=== PATIENT | female | born 1950 | race African-American/Black ===

== ENCOUNTER 2018-01-31 06:18 | Observation (INO) | payer MEDICARE ==
[2018-01-30 10:55] LABS: BASOPHILS % 0.2 % (0.0-1.0); EOSINOPHILS # (AUTO) 0.2 (0.0-0.4); EOSINOPHILS % 2.9 % (0.0-6.0); HEMATOCRIT 37.8 % (34.2-44.1); LYMPHOCYTES # (AUTO) 1.7 (1.0-3.2); LYMPHOCYTES % 26.6 % (18.0-39.1); MEAN CORPUSCULAR HEMOGLOBIN 28.6 pg (28-32); MEAN CORPUSCULAR HGB CONC 31.7 g/dL (31-35); MONOCYTES # (AUTO) 0.5 (0.2-0.8); MONOCYTES % 7.4 % (4.4-11.3); NEUTROPHILS % 62.6 % (38.7-80.0); PLATELET COUNT 259 x10e3/uL (140-360); RED CELL DISTRIBUTION WIDTH 13.8 % (11.7-14.4)
[2018-01-30 11:09] LABS: ANION GAP 10.5 mmol/L (8-16); BLOOD UREA NITROGEN 16 mg/dL (7-26); BUN/CREATININE RATIO 18 (6-25); CALCIUM 9.8 mg/dL (8.4-10.2); CARBON DIOXIDE 32 mmol/L (22-29); CHLORIDE 100 mmol/L (98-107); EST GLOMERULAR FILTRATION RATE > 60 ML/MIN (60-); GLUCOSE 99 mg/dL (74-118); POTASSIUM 4.5 mmol/L (3.5-5.1); SODIUM 138 mmol/L (136-145)
--- NOTE | 2018-01-30 11:21 | Diagnostic Imaging Report ---
PROCEDURE: X-RAY CHEST, TWO VIEWS COMPARISON: None. INDICATIONS: PREOPERATIVE CHEST XRAY FOR KNEE SURGERY FINDINGS: LUNGS: Well-inflated. No mass, infiltrate, or interstitial thickening. Vascular markings are normal. PLEURA: No effusions or pneumothorax. HEART \T\ MEDIASTINUM: The heart mildly enlarged. The aorta is ectatic. No hilar lymphadenopathy. BONES \T\ SOFT TISSUES: No focal osseous lesions. CONCLUSION: Mild cardiomegaly without vascular congestion. Otherwise normal chest. Dictated by: Julian Gandhi M.D. on 01/30/2018 at 11:22 Electronically approved by: Julian Gandhi M.D. on 01/30/2018 at 11:22
[~2018-01-31] VITALS: Ht 157.5 cm; Wt 82.1 kg
[~2018-01-31 06:18] MED LIST: ASPIR 8181 MG PO; BYSTOLIC20 MG PO; CELECOXIB 200 MG CAP ONE; CLARITIN-D 241 EACH PO; COMBIVENT RESPIM4 GM IH; DEXAMETHASONE SOD PHOS 10 MG/1 ML VIAL ONE; GABAPENTIN 300 MG CAP ONE; IBUPROFEN400 MG PO; OMEGA XL PO; TRIAMTERENE-HCTZ1 EA PO; VANCOMYCIN 1GM/NS 250 ML 250 ML ONE
--- OUTSIDE RECORDS SUMMARY | 2018-01-31 06:20 | XMS REPORT ---
Author Author [facility] Address Unknown Phone Unavailable Care Team Providers Care Permanent Mold Supervisor Name Role Phone ELIAN DOMINGUEZ Unavailable Unavailable Problems This patient has no known problems. Allergies, Adverse Reactions, Alerts This patient has no known allergies or adverse reactions. Medications This patient has no known medications. Results Test Description Test Time Test Comments Text Results Atomic Results Result Comments CHEST 2 VIEWS [place] [id number] Patient Name: LISSETTE DE ANDA MR #: [id number] : 1950 Age/Sex: 67/F Req #: [id number] Adm Physician: Ordered by: ELIAN DOMINGUEZ MD Report #: [id number] Location: OR Room/Bed: Procedure: [id number] DX/CHEST 2 VIEWS Exam Date: 01/30/18 Exam Time: 1105 REPORT STATUS: Signed PROCEDURE: X-RAY CHEST, TWO VIEWS COMPARISON: None. INDICATIONS: PREOPERATIVE CHEST XRAY FOR KNEE SURGERY FINDINGS: LUNGS: Well-inflated. No mass, infiltrate, or interstitial thickening. Vascular markings are normal. PLEURA: No effusions or pneumothorax. HEART T MEDIASTINUM: The heart mildly enlarged. The aorta is ectatic. No hilar lymphadenopathy. BONES T SOFT TISSUES: No focal osseous lesions. CONCLUSION: Mild cardiomegaly without vascular congestion. Otherwise normal chest. Dictated by: Makeda Gandhi M.D. on 01/30/2018 at 11:22 Electronically approved by: Makeda Gandhi M.D. on 01/30/2018 at 11:22 Dictated By: MAKEDA GANDHI MD 1122 Transcribed By: ASCENCION on 01/30/18 1122 COPY TO: ELIAN DOMINGUEZ MD
[2018-01-31] MEDS ORDERED: BACITRACIN 50,000 UNIT VIAL ONE (06:41)
[2018-01-31] MEDS ORDERED: MUPIROCIN 2% OINT 22 GM TUBE ONE (06:41)
[2018-01-31] MEDS ORDERED: ROPIVACAINE 246.25 MG, EPINEPHRINE HCL 1:1000 0.5 MG, CLONIDINE HCL 0.08 MG, KETOROLAC ... INJ ONE ×5 (08:00)
[2018-01-31] MEDS: SODIUM CHLORIDE 0.9% 1000ML 1,000 ML IV SCH (09:18)
[2018-01-31] MEDS ORDERED: ACETAMINOPHEN 650 MG SUPP PR PRN (09:30)
[2018-01-31] MEDS ORDERED: PROMETHAZINE HCL (IM) 25 MG/ML VIAL IM PRN (09:30)
[2018-01-31] MEDS ORDERED: DOCUSATE SODIUM 100 MG CAP PO PRN (09:30)
[2018-01-31] MEDS ORDERED: KETOROLAC TROMETHAMINE 30 MG/ML VIAL IV PRN (09:30)
[2018-01-31] MEDS ORDERED: DIPHENHYDRAMINE HCL INJ 50 MG/ML VIAL IM/IV PRN (09:30)
[2018-01-31] MEDS ORDERED: HYDROCODONE/APAP 5MG-325MG TAB PO PRN (09:30)
[2018-01-31] MEDS ORDERED: TRANEXAMIC ACID 1,000 MG/10 ML ML ONE (09:30)
[2018-01-31] MEDS ORDERED: ONDANSETRON HCL INJ 2 MG/ML VIAL IV PRN (09:30)
--- NOTE | 2018-01-31 11:18 | Operative Report ---
DATE OF PROCEDURE: January 31, 2018 DRY KILN OPERATOR HELPER: Darrell Bhatti PA-C The patient was brought to the operating room for induction of anesthesia. Throughout this case, my PA's assistance was necessary for retraction of soft tissue and positioning of the extremity. This allows for efficient and technically successful execution of the operation and is considered medically necessary. PREOPERATIVE DIAGNOSIS: Osteoarthritis, left knee. POSTOPERATIVE DIAGNOSIS: Osteoarthritis, left knee. PROCEDURE: Left total knee arthroplasty. INDICATIONS: The patient is a 67-year-old lady with advanced osteoarthritis of her left knee. She has failed extensive conservative management and would like to proceed with a left total knee replacement. The risks and benefits of the procedure have been discussed. The recovery has been explained. She states she understands and wishes to proceed. DESCRIPTION OF PROCEDURE: The patient was brought to the operating room and placed under general anesthetic. She received a regional block and prophylactic antibiotics in the holding area. Her left lower extremity was prepped and draped in a sterile manner. A preoperative time out was performed. The extremity was exsanguinated, and a proximal tourniquet was inflated to 300 mmHg. An anterior approach with a medial parapatellar arthrotomy was performed. Care was taken to avoid extensive soft-tissue dissection. Releases were performed to bring her knee up into flexion with the patella everted. Some challenges were encountered due to her body mass index. The cruciate ligaments were sacrificed. A [employer] Nayana II posterior stabilized knee system was used throughout the case. Meniscal remnants and marginal osteophytes were removed. An extramedullary cutting guide was used to resect the proximal tibia. The tibial baseplate was a size #3. The central fin punch was impacted, and attention was directed towards the distal femur. An intramedullary cutting guide was used to resect the distal femur in 6 degrees of valgus with rotation referenced off of a combination of landmarks including the posterior condyle, [place]'s line and the epicondylar axis. The femoral component was also a size #3. The anterior and posterior chamfer cuts were made. A trial reduction was performed. An 11-mm ultracongruent tibial insert was felt to provide optimal soft-tissue balancing and full extension and flexion of 90 degrees. The patella was then resurfaced with a 29-mm x 9-mm patellar button. The thickness was checked before and after and was right at 21 mm. Patellar tracking was noted to be concentric. The trial implants were then removed. A 100 mL premixed pericapsular MIGUEL A injection was placed into the soft tissue around the knee. The knee was thoroughly irrigated with a shower-tip pulsatile lavage. The components were cemented into place using a single mix of Palacos cement preloaded with antibiotics. Care was taken to remove extravasated cement. The wound was further irrigated while the cement cured. The arthrotomy was then carefully closed with interrupted #1 Ethibond. The knee was put through flexion and extension after each stitch to ensure a secure closure. The skin was closed with subcuticular Vicryl and francisco. A sterile bandage was then applied. She was extubated and transported to the recovery room in stable condition. Blood loss was minimal, and all needle and sponge counts were correct. Job#: [id number]
--- NOTE | 2018-01-31 11:37 | Diagnostic Imaging Report ---
PROCEDURE: X-RAY LEFT KNEE, ONE OR TWO VIEWS COMPARISON: None. INDICATIONS:POST OPERATIVE LEFT KNEE SURGERY FINDINGS: See conclusion. CONCLUSION: Status post total left knee replacement with surrounding soft tissue swelling, air and francisco consistent with recent surgery. No acute fractures. No lytic or blastic lesions. Satisfactory alignment of the orthopedic hardware. Rigo Kenyon M.D. Dictated by: Rigo Kenyon M.D. on 01/31/2018 at 11:37 Electronically approved by: Rigo Kenyon M.D. on 01/31/2018 at 11:37
[2018-01-31] MEDS: ACETAMINOPHEN 1000 MG/100 ML IV SCH ×2 (11:52→18:00)
[2018-01-31 11:56] VITALS: BP 145/75
[2018-01-31 11:57] VITALS: BP 145/75
[2018-01-31 12:24] VITALS: BP 145/75
[2018-01-31] MEDS ORDERED: IPRATROPIUM/ALBUTEROL SULFATE 4 GM INH INH PRN (13:30)
[2018-01-31] MEDS ORDERED: NON-FORMULARY MEDICATION (Ipratropium/Albuterol Sulfate (Combivent Respimat Inhal Spray) 4 IH SCH (13:30)
[2018-01-31 16:16] VITALS: BP 154/76
[2018-01-31] MEDS ORDERED: ASPIRIN 325 MG TAB PO SCH (17:00)
[2018-01-31] MEDS ORDERED: CELECOXIB 100 MG CAP PO SCH (17:00)
[2018-01-31] MEDS: HYDROCODONE/APAP 7.5MG-325MG 1 EA TAB PO PRN ×2 (17:17→22:56)
[2018-01-31] MEDS ORDERED: KETOROLAC TROMETHAMINE 30 MG/ML VIAL ONE (17:19)
[2018-01-31] MEDS ORDERED: LIDOCAINE HCL 2% LOCAL INJ 5 ML SDV VIAL INJ ONE (17:19)
[2018-01-31] MEDS ORDERED: SEVOFLURANE INHAL SOLN 250 ML PEN BTL ONE (17:19)
[2018-01-31] MEDS ORDERED: ONDANSETRON HCL INJ 2 MG/ML VIAL ONE (17:19)
[2018-01-31] MEDS ORDERED: DEXAMETHASONE SOD PHOS INJ 4 MG/ML VIAL ONE (17:19)
[2018-01-31] MEDS ORDERED: PROPOFOL IV EMULSION 10 MG/ML 20 ML VIAL ONE (17:19)
[2018-01-31] MEDS ORDERED: LIDOCAINE 2% /EPINEPHRINE 20 ML SDV INJ ONE (17:29)
[2018-01-31] MEDS ORDERED: ROPIVACAINE 0.5% 5 MG/ML 30 ML SDV ONE (17:29)
[2018-01-31] MEDS ORDERED: MIDAZOLAM HCL 2 MG/2 ML VIAL ONE (17:38)
[2018-01-31] MEDS ORDERED: FENTANYL CITRATE/PF 100MCG/2 ML INJ ONE (17:38)
[2018-01-31] MEDS ORDERED: VANCOMYCIN 1GM/NS 250 ML 250 ML IV SCH (18:00)
[2018-01-31 20:00] VITALS: BP 151/69
[2018-01-31] MEDS ORDERED: NEBIVOLOL HCL 20 MG PO SCH (21:00)
[2018-01-31] MEDS ORDERED: ZOLPIDEM TARTRATE 5 MG TAB PO PRN (21:00)
[2018-01-31] MEDS ORDERED: NEBIVOLOL 10 MG TAB PO SCH (21:00)
[2018-02-01] VITALS: BP 122/69
[2018-02-01] MEDS: SODIUM CHLORIDE 0.9% 1000ML 1,000 ML IV SCH (01:59)
[2018-02-01 04:00] VITALS: BP 165/87
[2018-02-01] MEDS: HYDROCODONE/APAP 7.5MG-325MG 1 EA TAB PO PRN (04:54)
[2018-02-01] MEDS: ACETAMINOPHEN 1000 MG/100 ML IV SCH ×2 (06:00)
[2018-02-01 07:11] LABS: HEMATOCRIT 33.2 % (34.2-44.1); HEMOGLOBIN 10.4 g/dL (12.0-16.0)
[2018-02-01 08:00] VITALS: BP 161/74
[2018-02-01] MEDS ORDERED: TRIAMTERENE/HCTZ 37.5-25 MG TAB PO SCH (09:00)
[2018-02-01] MEDS ORDERED: ACETAMINOPHEN 1000 MG/100 ML IV PRN (09:30)
[2018-02-01 11:17] VITALS: BP 161/61
[2018-02-01 11:55] VITALS: BP 145/68
[2018-02-01] MEDS ORDERED: NORCO 7.5-3251 EACH PO (15:00)
[2018-02-01] MEDS ORDERED: CELECOXIB 200 MG CAP PO SCH (17:00)
== END 2018-02-01 16:18 | disposition home or self-care (01) ==
LOC: OR 06:18 → MED/SURG 10:49
PROVIDERS: ADMIT Specialist; ATTEND Specialist
DX: M17.12 Unilateral primary osteoarthritis, left knee (principal); I10 Essential (primary) hypertension; Z88.0 Allergy status to penicillin; D64.9 Anemia, unspecified
CPT/HCPCS: 27447; 36415 ×2; 71046; 73560; 80048; 85014; 85018; 85025; 86850; 86900; 86920; 93005; 97110; 97116; 97139; 97161; 97530; C1713; G0378 ×2; G8978; G8979; J0171; J1100 ×2; J1885; J2001 ×2; J2250; J2405; J2795; J3370 ×2; J7030